=== PATIENT | female | born 1995 | race Caucasian/White ===

== ENCOUNTER → 2024-03-18 | Outpatient (CLI) | payer BC, SELFPAY ==
[2024-03-23 09:55] LABS: HPV Reflexed? NOT INDICATED
== END | disposition home or self-care (01) ==
PROVIDERS: Referring Provider Advanced Practice Midwife; Visit Provider Advanced Practice Midwife
DX: Z12.4 Encounter for screening for malignant neoplasm of cervix (principal)
CPT/HCPCS: 88175; G0145

== ENCOUNTER → 2024-10-07 | Outpatient (CLI) | payer BC, SELFPAY ==
--- OUTSIDE RECORDS SUMMARY | 2024-10-07 08:44 | XMS RPT_ITS | CCD ---
Author Organization [facility] Inform ion Partnership [facility] Care Team Providers Care Fruit Room Hand Name Role Phone AndresRabia orourke Unavailable Unavailable Eufemia Bob Unavailable Unavailable Laurel Tarango MD Unavailable Unavailable Eufemia Bob MD Primary Care Provider [phone] Eufemia Bob MD Primary Care Provider [phone] Unknown, Referring Provider Unavailable Unav ailable Unavailable Unavailable UNKNOWN, PCP Primary Care Unavailable Julian Foote Referring Unavailable Julian Foote Attending Unavailable Torrie Lazo Referring Unavailable Torrie Lazo Attending Unavailable Torrie Lazo Attending Unavailable Allergies Allergy Classification Reported Allergen(s) Allergy Type Date of Onset Reaction(s) Facility (1 source) tobacco; Translations: [tobacco] Propensity to adverse reactions (disorder) 5 [facility] Repository Medications Current Medications Medication Drug Class(es) Dates Sig (Normalized) Sig (Original) Desogestrel / Ethinyl Estradiol (4 sources) Progestin, Estrogen Start: 10-15-2021 take 1 tablet by mouth once daily, then take 0.15 tablet by mouth once Desogestrel-Ethin yl Estradiol (JULEBER) 0.15-0.03 mg per tablet TAKE 1 TABLET BY MOUTH ONCE DAILY until directed to stop 84 tablet 4 10/15/2021 Active Start: 09-10-2021 End: 10-15-2021 take 1 tablet by mouth once daily, then take 0.15 tablet by mouth once Desogestrel-Ethinyl Estradiol (JULEBER) 0.15-0.03 mg per tablet TAKE 1 TABLET BY MOUTH ONCE DAILY until directed to stop 84 tablet 0 09/10/2021 10/15/2021 Discontinued Start: 09-10-2021 take 1 tablet by edmund th once daily, then take 0.15 tablet by mouth once Desogestrel-Ethinyl Estradiol (JULEBER) 0.15-0.03 mg per tablet TAKE 1 TABLET BY MOUTH ONCE DAILY until directed to stop 84 tablet 0 09/10/2021 Active Start: 10-09-2020 End: 09-10-2021 take 1 tablet by mouth once daily, then take 0.15 tablet by mouth once Desogestrel-Ethinyl Estradiol (JULEBER) 0.15-0.03 mg per tablet TAKE 1 TABLET BY MOUTH ONCE DAILY until directed to stop 3 Package 4 10/09/2020 09/10/2021 Discontinued Comment on above: TAKE 1 TABLET BY EDMUND TH ONCE DAILY until directed to stop Completed/Discontinued Medications Medication Drug Class(es) Dates Sig (Normalized) Sig (Original) amitriptyline hydrochloride 25 mg oral tablet (2 sources) Tricyclic Antidepressant Start: 6 amitriptyline (ELAVIL) 25 mg tablet Take by mouth once daily. 0 08/03/2015 Active Comment on above: Take by mouth once d aily. atenolol 25 mg oral tablet (2 sources) beta-Adrenergic Paul Start: 6 atenolol (TENORMIN) 25 mg tablet Take by mouth once daily. 0 08/19/2015 Active Comment on above: Take by mouth once d aily. benzonatate 200 mg oral capsule (1 source) Non-narcotic Antitussive Start: 2 take 1 capsule by mouth three times daily as needed Benzonatate 200 MG Oral Capsule TAKE 1 CAPSULE 3 TIMES DAILY NEEDED. Quantity: 30 Refills: 0 Ordered: 08-Jan-2022 Julian Foote MD Start : 08-Jan-2022 Active 24 hr diclofenac sodium 100 mg extended release oral tablet (2 sources) Nonsteroidal Anti-inflammatory Drug Start: 6 diclofenac XR (VOLTAREN-XR) 100 mg Tb24 Take by mouth once daily. 0 09/01/2015 Active Comment on above: Take by mouth once d aily. fludrocortisone acetate 0.1 mg oral tablet (2 sources) Start: 6 take 1 tablet by mouth twice daily fludrocortisone (FLORINEF) 0.1 mg tablet Take by mouth twice daily. 0 09/01/2015 Active Comment on above: Take by mouth twice daily. hydroxychloroquine sulfate 200 mg oral tablet (2 sources) Antimalarial, Antirheumatic Agent hydroxychloroquine (PLAQUENIL) 200 mg tablet Take by mouth once daily. 0 Active Comment on above: Take by mouth once d aily. lidocaine 0.05 mg/mg medicated patch (2 sources) Antiarrhythmic, Amide Local Anesthetic Start: 6 apply 1 dose transdermal route every twelve hours lidocaine (LIDODERM) 5 % Apply 1 Patch as directed every 12 hours. 0 09/01/2015 Active Comment on above: Apply 1 Patch as dir ected every 12 hours. magnesium oxide 400 mg oral tablet (2 sources) Start: 6 magnesium oxide (MAG-OX) 400 mg tablet Take by mouth once daily. 0 09/01/2015 Active Comment on above: Take by mouth once d aily. raNITIdine (2 sources) Histamine-2 Receptor Antagonist RANITIDINE HCL (ZANTAC ORAL) Take by mouth once daily. 0 Active Comment on above: Take by mouth once d aily. Problems Active Problems Problem Classification Problem Date Documented Date Episodic/Chronic Cardiac dysrhythmias (2 sources) Postural orthostatic tachycardia syndrome ; Translations: [Other specified cardiac dysrhythmias] Chronic Headache; including migraine (2 sources) Migraine; Translations: [Migraine, unspecified, without mention of intractable migraine without mention of status migrainosus] Chronic Other non-traumatic joint disorders (4 sources) Hypermobility of joint; Translations: [Other joint derangement, not elsewhere classified, site unspecified] Episodic Other screening for suspected conditions (not mental disorders or infectious disease) (1 source) Encounter for screening for malignant neoplasm of cervix; Translations: [Encounter for screening for malignant neoplasm of cervix] Onset: 04-14-2024 Episodic Other upper respiratory infections (2 sources) Sore throat symptom; Translations: [Acute pharyngitis] Episodic Residual codes; unclassified (2 sources) Flushing; Translations: [Flushing] Episodic Past or Other Problems Problem Classification Problem Date Documented Da te Episodic/Chronic Abdominal pain (2 sources) Abdominal discomfort; Translations: [Unspecified abdominal pain] Onset: 11-30-2015 11-30-2015 Episodic Blindness and vision defects (2 sources) Diplopia; Translations: [Diplopia] Onset: 05-02-2011 05-02-2011 Episodic Headache; including migraine (2 sources) Headache; Translations: [Headache] Onset: 05-02-2011 05-02-2011 Episodic Other lower respiratory disease (1 source) History of clinical finding in subject; Translations: [Personal history of other diseases of respiratory system] Resolved: 01-08-2022 Episodic Residual codes; unclassified (2 sources) Family history of malignant neoplasm of breast in first degree relative; Translations: [Family history of malignant neoplasm of breast] Onset: 12-28-2019 12-28-2019 Episodic NEGATED: Highlighted row has not occurred!Residual codes; unclassified (1 source) Disease Episodic Results Test Name Value Interpretation Reference Range Facility PAP I-G w/rfx hrHPV-Aptimaon 03-22-2024 ADEQ Comment Normal . [facility] Comment on above: Order Comment: Specimen Comment: PABLO [id number] Specimen Comment: Source.............Cervix;Endocervix Specimen Comment: No. of containers..01 ThinPrep Vial Result Comment: Sati sfactory for evaluation. Endocervical and/or squamous metaplastic cells (endocervical component) are present. Performed By: #### L 7400.0353 #### [facility] [address] [place], [address] COMM . Normal . [facility] Comment on above: Order Comment: Specimen Comment: CYNTHIACharlene [id number] Specimen Comment: Source.............Cervix;Endocervix Specimen Comment: No. of containers..01 ThinPrep Vial Performed By: #### L 7400.0353 #### [facility] [address] [place], [place], [id number] COMMENT Comment Normal . [facility] Comment on above: Order Comment: Specimen Comment: PABLO [id number] Specimen Comment: Source.............Cervix;Endocervix Specimen Comment: No. of containers..01 ThinPrep Vial Result Comment: This liquid based ThinPrep(R) pap test was screened with the use of an image guided system. Performed By: #### L 7400.0353 #### [facility] [address] [place], [place], [id number] DIAG Comment Normal . [facility] Comment on above: Order Comment: Specimen Comment: CO-OLGA LIDIA [id number] Specimen Comment: Source.............Cervix;Endocervix Specimen Comment: No. of containers..01 ThinPrep Vial Result Comment: NEGA TIVE FOR INTRAEPITHELIAL LESION OR MALIGNANCY. Performed By: #### L 7400.0353 #### [facility] [address] [place], [address] HPV RFLX Comment Normal . [facility] Comment on above: Order Comment: Specimen Comment: CO-Charlene [id number] Specimen Comment: Source.............Cervix;Endocervix Specimen Comment: No. of containers..01 ThinPrep Vial Result Comment: The HPV DNA reflex criteria were not met with this specimen result therefore, no HPV testing was performed. Performed at: [address] [id number] [employer] Order Clerk: Christie Frias MD, Phone: [phone] Performed By: #### L 7400.0353 #### [facility] [address] [place], [address] PAPSMR Comment Normal . [facility] Comment on above: Order Comment: Specimen Comment: CO-Charlene [id number] Specimen Comment: Source.............Cervix;Endocervix Specimen Comment: No. of containers..01 ThinPrep Vial Result Comment: The Pap smear is a screening test designed to aid in the detection of premalignant and malignant conditions of the uterine cervix. It is not a diagnostic procedure and should not be used as the sole means of detecting cervical cancer. Both false-positive and false-negative reports do occur. Performed By: #### L 7400.0353 #### [facility] [address] [place], [address] PERFORM Comment Normal . [facility] Comment on above: Order Comment: Specimen Comment: CO-CWB2 [id number] Specimen Comment: Source.............Cervix;Endocervix Specimen Comment: No. of containers..01 ThinPrep Vial Result Comment: Vadim Le, Business Intelligence Manager (ASCP) Performed By: #### L 7400.0353 #### [facility] [address] [place], [address] Instructional Technology Coach Office Visit Reporton 03-18-2024 Instructional Technology Coach Office Visit Report [facility] [address], [address] [place] [address] OFFICE VISIT Date of Service: 03/18/24 MR#: [id number] Acct: [id number] Name: MIS SANDOVAL [place] Rep #: [id number] : 1995 Provider: BRYNN Powell ams Age/Sex: 28/F [place] [facility] [place] Status: Signed Intake Vital Signs 12/26/22 10:07 03/18/24 15:58 Height 5 ft 5 in 5 ft 5 in Weight: 225 lb BMI 37.4 BP 140/88 H Intake Visit 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: No Is patient in pain?: No Allergies tobacco Allergy (Severe, Uncoded 03/18/24 15:59) Anaphylaxis Medications ???Medication ???Instructions ???Recorded ???Confirmed ???Type desogestrel 0.15 mg-ethinyl 1 tab PO DAILY #84 tabs 03/18/24 03/18/24 Rx estradiol 0.03 mg tablet Is last menstrual period known: Yes Last Menstrual Period: 03/04/24 Post menopausal: No Patient : No Control Method: ocp [facility] Medical History Nutcracker phenomenon of renal vein Hypoglycemia without diagnosis of diabetes mellitus Vasovagal syncopes POTS (postural orthostatic tachycardia syndrome) Migraine Matt-Danlos syndrome Surgical History S/P wisdom tooth extraction Family History Brother Asthma Mother Bleeding disorder Thyroid disorder Breast cancer, Onset Age: 40 Grandmother Breast cancer Diabetes Myocardial infarction Father CVA (cerebral vascular accident) Grandmother Cancer Diabetes Aunt Cancer Social History adopted: No household members: spouse current occupational status: employed 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 current occupational exposures/hazards: No pets and animals: Yes history of recent travel: No sexually active: Yes Smoking Status: Never smoker alcohol intake: current details: socially substance use type: does not use caffeine: Yes seatbelt use: always do you feel safe at home: Yes additional social history: [employer] - [employer] History 1 Elective abortions Hx Para 0 Spontaneous abortions 1 Hx # Term Pregnancies Ectopic pregnancies Hx # Pregnancies Multiple births # of living children 0 HPI Encounter for routine gynecological examination Details: MIS SANDOVAL is a 28 year old who presents for annual exam. Last PAP: 2021; normal per pt History of abnormal PAP: no Last mammogram: age 42 History of abnormal mammogram: n/a Colon cancer screening: age 47 Other preventative health care screenings: no pcp Female Reproductive History Last Menstrual Period: 03/04/24 Cycle Length: 21-35 Bleeding Duration: 4 Questions: metorrhagia: No, sexually active: Yes, dyspareunia: No and PCB: No ROS Const Constitutional: Reports system reviewed and no additional complaints, except as documented Cardio Card: Reports system reviewed and no additional complaints, except as documented Resp Resp: Reports system reviewed and no additional complaints, except as documented GI GI: Reports system reviewed and no additional complaints, except as documented : Reports system reviewed and no additional complaints, except as documented; Denies difficulty voiding, dysuria or urinary frequency Skin Skin/Breast: Reports system reviewed and no additional complaints, except as documented Neuro Neuro: Reports system reviewed and no additional complaints, except as documented Psych Psych: Reports system reviewed and no additional complaints, except as documented; Denies anhedonia, anxiety or depression Exam Const General: cooperative, healthy appearing, comfortable and no acute distress Orientation: alert, awake and oriented x3 Neck Neck: normal visual inspection and full ROM Thyroid: thyroid normal Chest Breast inspection: normal inspection of the breasts and normal inspection of the axillae Breast palpation: normal palpation of the breasts and normal palpation of the axillae Resp Effort Inspection: normal respiratory effort, able to speak in complete sentences and symmetric chest movement GI Inspection: normal to inspection Palpation: soft Rectal Exam: visual inspection normal External Female Exam: normal external appearance and normal appearance of the urethra Urethra: normal appearance of the urethra Speculum Exam - Vagina: normal appearance of the vagina and normal vaginal discharge Speculum Exam - Cervix: normal appearance of the cervix and nontender Bimanual Exam- Vagina Uterus: normal bimanual exam, normal palpation, uterine size normal, No tender and non-tender Bimanual Exam- Adnexa, other: normal Pelvic Support: normal Skin General: (more content not included)... Normal [facility] Covid 19 Resultson 2 SARS-CoV-2 (COVID-19) RNA ANTONIO+probe Ql (Unsp spec) NEGATIVE COVID-19 Test Coronaviruses are common world-wide and are the cause of many common colds. SARS-COV2 is a new coronavirus that began circulating worldwide in 2019 so we are calling it COVID-19. It has been estimated that four out of five patients with COVID-19 will recover at home without the need for medical attention. Symptoms of COVID-19 may include cough, fever, shortness of breath, loss of taste or smell and other flu-like symptoms including chills, sore muscles, sore throat, and headache. Severe illness is more common in older people and people with other health problems such as high blood pressure, obesity, and immune system problems. If the test is positive, you have COVID-19. You will be contacted by the ordering physicians office and instructed to remain on home isolation, in accordance with CDC guidelines. You may also be contacted by the [facility] to see if any of your close contacts may have been exposed to the virus and need to quarantine. If the test is negative, you likely do not have COVID-19 at this time, but you still may have a different illness that can spread to other people (like Influenza, or the Flu) and could still be at risk for getting COVID-19. We recommend that you stay away from other people to limit the spread of illness until your symptoms are improving and you are fever-free for 24 hours without the use of fever lowering medications such as acetaminophen or ibuprofen. No test is 100% accurate so if you are still concerned you may have COVID-19, talk to your doctor about the need to continue to stay away from others. Medicines Unless your provider told you not to use the following: Acetaminophen (Tylenol and others) is generally safe. Anti-inflammatory medications, such as Ibuprofen (Advil or Motrin) or Naproxen (Aleve) can also be used. Yugj-ons-eoyhfer cough and cold medicines can be used according to the instructions on the package. Some fmza-fsp-fzbkupt medicines also contain acetaminophen. Make sure you are not taking more than your recommended dose. For those not hospitalized, there is no specific treatment available for this illness. Antibiotics do not treat Coronaviruses. Follow-Up Follow up with your doctor by scheduling a virtual visit or consider follow-up at one of our urgent care fever clinics. If you are having difficulty breathing, or are very weak and having difficulty standing, this is a medical emergency. Call 911 or have someone take you to the nearest emergency room immediately. If possible, wear a facemask. Additional guidance from the CDC for patients who tested POSITIVE for COVID-19 How to isolate: Isolate yourself in a specific room at home and limit your contact with others. Use a separate bathroom from other members of the household, when possible. Leave home only to get essential medical care. Do not go to work, school or public areas. Avoid using public transportation, ride-sharing, or taxis. Restrict contact with pets and other animals. If you must care for your pet or be around animals while you are sick, wash your hands before and after your interaction and wear a facemask. Make sure that shared spaces in the home have good airflow, such as by an air conditioner or an opened window, weather permitting. Personal Hygiene Procedures: Wear a face mask when in the same room as other people or pets. If a face mask interferes with your breathing, others should wear a mask when sharing space with you. Frequent hand-washing: wash your hands with soap and water for at least 20 seconds. If soap and water are not available, use alcohol-based hand clinical nurse occupational medicine. Avoid touching your eyes, nose, and mouth with unwashed hands. Household Hygiene Procedures: Avoid sharing personal household items such as dishes, glassware, cups, eating utensils, towels or bedding with other people or pets in your home. After use, these items should be washed with soap and hot water. Disinfect all high-touch surfaces every day with antibacterial cleaning solutions such as Lysol wipes, bleach, cleansers, etc. High-touch surfaces include tabletops, doorknobs, bathroom fixtures, toilets, phones, keyboards, tablets and bedside tables. Immediately clean any surfaces that may have blood, poop or body fluids on them, using antibacterial cleaning solutions such as Lysol wipes, bleach, cleansers, etc. If clothing or bedding come into contact with blood, poop or body fluids, they should be washed immediately. Follow the directions on the laundry detergent and clothing labels but hot water is recommended when possible. Stopping home isolation precautions: If possible, consult your doctor before stopping home isolation precautions. According to the CDC, you can discontinue home isolation precautions when you have met both of these criteria: Your fever and respiratory symptoms have been gone for 24 anthony (more content not included)... Normal [facility] INFLUENZA A/B, COVID 2019 PC R,SYMPTOMATICon 01-09-2022 INFLUENZA A, PCR Not detected Normal Not Detected [facility] Comment on above: Result Comment: Respiratory virus testin g is performed routinely by PCR for Influenza A/B and RSV. If Influenza and RSV PCR are negative, testing for parainfluenza 1,2,3 viruses and adenovirus is routinely performed for oncology inpatients and intensive care unit patients at [facility] and is available on request on other patients by calling Laboratory Client Services at [phone]. Not Detected results do not preclude Influenza A/B or RSV infections since the adequacy of sample collection or low viral burden may impact the clinical sensitivity of this test method. Performed By: #### C ALESSANDRA #### [facility] [address] [place] [address] INFLUENZA B, PCR Not detected Normal Not Detected [facility] Comment on above: Result Comment: Respiratory virus testin g is performed routinely by PCR for Influenza A/B and RSV. If Influenza and RSV PCR are negative, testing for parainfluenza 1,2,3 viruses and adenovirus is routinely performed for oncology inpatients and intensive care unit patients at [facility] and is available on request on other patients by calling Laboratory Client Services at [phone] Not Detected results do not preclude Influenza A/B or RSV infections since the adequacy of sample collection or low viral burden may impact the clinical sensitivity of this test method. . The TaqManTM SARS-CoV-2, Flu A, Flu B Multiplex Assay is a multiplex, real-time RT-PCR assay for the detection of RNA from the SARS-CoV-2, Influenza A, and Influenza B viruses. A negative result does not preclude the possibility of SARS-CoV-2, Influenza A, or Influenza B infections, and should not be used as the sole basis for patient management decision as a negative result may be caused by very low levels of infection, collection errors, or testing errors. . This test was developed and its performance characteristics were determined by the Microbiology Laboratory, Department of Pathology, [facility], [place], [place]. It has not been cleared or approved by the US Food and Drug Administration; however, FDA clearance or approval is not currently required for clinical use. This test should not be regarded as investigational or for research purposes. Performed By: #### C OINP #### [facility] [address] [place] [address] SARS-CoV-2 (COVID-19) RNA ANTONIO+probe Ql (Unsp spec) Not detected Normal Not Detected [facility] Comment on above: Result Comment: . This assay is designed to detect the N, ORF1ab and/or S genes of SARS-CoV-2 via nucleic acid amplification. A Negative (NOT DETECTED) result does not preclude 2019-nCoV infection since the adequacy of sample collection and/or low viral burden may result in presence of viral nucleic acids below the clinical sensitivity of this test method. Negative (NOT DETECTED) result should not be used as the sole basis for treatment or other patient management decisions. Rather negative results should be combined with clinical observations, patient history, and epidemiological information to make patient management decisions. Fact sheet for providers: https://www.fda.gov/media/106922/download Fact sheet for patients: https://www.fda.gov/media/405297/download This test has received FDA Emergency Use Authorization (EUA) and has been verified by [facility] ([facility]). This test is only authorized for the duration of time that circumstances exist to justify the authorization of the emergency use of in vitro diagnostic tests for the detection of SARS-CoV-2 virus and/or diagnosis of COVID-19 infection under section 564(b)(1) of the Act, 21 U.S.C. 360bbb-3(b)(1), unless the authorization is terminated or revoked sooner. [facility] is certified under CLIA-88 as qualified to perform high complexity testing. Testing is performed in the [facility] laboratories located at [address] [place] [address]. Performed By: #### C OINP #### [place] [address] INFLUENZA A/B, COVID 2019 PC R,SYMPTOMATICon 01-08-2022 Lab Specimen Source Nasal, Nasopharyngeal Normal [facility] Comment on above: Performed By: #### COINP #### [place] [address] INFLUENZA A/B, COVID 2019 PCR,SYMPTOMATIC Not detected See [facility] Work Phone: Comment on above: Reference Range: Not Detected.This assay is designed to detect the N, ORF1ab and/or S genes of SARS-CoV-2 via nucleic acid amplification. A Negative (NOT DETECTED) result does not preclude 2019-nCoV infection since the adequacy of sample collection and/or low viral burden may result in presence of viral nucleic acids below the clinical sensitivity of this test method. Negative (NOT DETECTED) result should not be used as the sole basis for treatment or other patient management decisions. Rather negative results should be combined with clinical observations, patient history, and epidemiological information to make patient management decisions.Fact sheet for providers: https://www.fda.gov/media/477216/downloadFact sheet for patients: https://www.fda.gov/media/672579/downloadThis test has received FDA Emergency Use Authorization (EUA) and has been verified by [facility] ([facility]). This test is only authorized for the duration of time that circumstances exist to justify the authorization of the emergency use of in vitro diagnostic tests for the detection of SARS-CoV-2 virus and/or diagnosis of COVID-19 infection under section 564(b)(1) of the Act, 21 U.S.C. 360bbb-3(b)(1), unless the authorization is terminated or revoked sooner. [facility] is certified under CLIA-88 as qualified to perform high complexity testing. Testing is performed in the [facility] laboratories located at [address] [place] [address]. Reference Range: Not Detected Respiratory virus testing is performed routinely by PCR for Influenza A/B and RSV. If Influenza and RSV PCR are negative, testing for parainfluenza 1,2,3 viruses and adenovirus is routinely performed for oncology inpatients and intensive care unit patients at [facility] and is available on request on other patients by calling Laboratory Client Services at [phone] Not Detected results do not preclude Influenza A/B or RSV infections since the adequacy of sample collection or low viral burden may impact the clinical sensitivity of this test method..The TaqManTM SARS-CoV-2, Flu A, Flu B Multiplex Assay is a multiplex, real-time RT-PCR assay for the detection of RNA from the SARS-CoV-2, Influenza A, and Influenza B viruses. A negative result does not preclude the possibility of SARS-CoV-2, Influenza A, or Influenza B infections, and should not be used as the sole basis for patient management decision as a negative result may be caused by very low levels of infection, collection errors, or testing errors. .This test was developed and its performance characteristics were determined by the Microbiology Laboratory, Department of Pathology, [facility], [place], [place]. It has not been cleared or approved by the US Food and Drug Administration; however, FDA clearance or approval is not currently required for clinical use. This test should not be regarded as investigational or for research purposes. SOURCE: Nasal, Nasop haryngealReference Range: Not Detected Respiratory virus testing is performed routinely by PCR for Influenza A/B and RSV. If Influenza and RSV PCR are negative, testing for parainfluenza 1,2,3 viruses and adenovirus is routinely performed for oncology inpatients and intensive care unit patients at [facility] and is available on request on other patients by calling Laboratory Client Services at [phone]. Not Detected results do not preclude Influenza A/B or RSV infections since the adequacy of sample collection or low viral burden may impact the clinical sensitivity of this test method. IO Rapid Strepon 01-08-2022 S. pyogenes Ag Ql (Throat) Negative [facility] Phone: Office Visit (Urgent Care)on 01-08-2022 Follow-up visit Diagnoses/Problems Assessed Viral URI with cough (465.9) (J06.9) History of sore throat (V12.69) (Z87.09) Sore throat (462) (J02.9) Orders PMH: History of sore throat IO Rapid Strep; Status:Resulted - Requires Verification,Retrospective Authorization; Done: 08Jan2022 11:07AM Performed:In Office; Due:08Apr2022; Last Updated By:Kendall Paiz; 01/08/2022 11:07:48 AM;Ordered; For:PMH: History of sore throat; Ordered By:Julian Foote; Sore throat INFLUENZA A/B, COVID 2019 PCR,SYMPTOMATIC; Status:In Progress - Specimen/Data Collected; Done: 08Jan2022 Perform:Lab Services - Lab To Draw (Non-Blood Test); Due:08Apr2022;Ordered; For:Sore throat; Ordered By:Julian Foote; Patient Discussion/Summary Please see your primary care physician in 5-7 days. as needed You have been identified as a patient under investigation (PUI) Tylenol or Motrin as needed for discomfort Increase fluids and rest Call for your test results in 24-48 hours Practice self quarantining, social distancing, masking and cleaning surfaces An information packet has been provided Seek medical care for increasing shortness of breath, chest pains or high fevers Chief Complaint Chief Complaints Nasal Symptoms History of Present Illness 26 year old female presents with 2 days of cough, congestion, postnasal drip runny nose and sore throat. No fevers have been noted. Patient denies shortness of breath, chest pain, or wheezing. No red eyes, eye pain, or discharge. They deny nausea vomiting or diarrhea. No known exposures to strep mono influenza, COVID-19 or pneumonia. No skin rashes are noted. Sazu-cke-tnrvgfg medications are offering minimal relief from symptoms. 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 Over the last 2 weeks have you felt down, depressed or hopeless? (If yes, answer PHQ-9 below)No PHQ-2 #2. Over the last 2 weeks have you felt little interest or pleasure in doing things? (If yes, answer PHQ-9 below)No Falls Screening (Age 18+)a) No falls within the last year O2 Bqrkslkvlh79 Pain Scale6 Physical Exam Gen.-alert cooperative and in no apparent distress Head and face- no swelling redness, tenderness or rash Eyes-EOMI, no redness or discharge is noted ENT- bilateral nasal congestion with clear rhinorrhea and postnasal drip in oral pharynx Neck- normal range of motion with no lymphadenopathy or mass. Thyroid normal size without tenderness or mass Pulmonary- no respiratory distress noted. Lungs clear to auscultation without wheezes rhonchi or rales Skin- no rashes discoloration or skin lesions noted Lymphatic-- no lymph node swelling or tenderness appreciated Results/Data IO Rapid [id number] 11:07AMJulian Foote Test NameResultFlagReference IO Rapid StrepNegative Rapid strep test negative Signatures Electronically signed by : Julian Foote MD; Jan 08 2022 11:35AM EST (Author) Normal [employer] Tobacco Screening.on 022 Adult depression screening assessment No [facility] Phone: Fall risk assessment a) No falls within the last year [facility] Work Phone: Tobacco use status [facility] b) No [facility] Work Phone: CNOVon 10-15-2021 CNOV Office Visit (OBGMEM ) MIS SANDOVAL ([id number]) 1995 F Date Time Provider Department 10/15/21 7:00 AM CAROLYN PINEDA During your visit today, we recorded the following information about you: Blood pressure Weight Last Period 106/80 93.9 kg 10/01/21 Carolyn Pineda MD 10/15/2021 7:24 AM Signed Mis is a 26 year old who presents for an annual gynecologic exam without complaints. Menses: cycles every 28 days and 5-6 days of flow. Contraception: combined hormonal contraceptives HPV vaccine: Yes Last Pap: 08/24/2019 ASCUS HPV: 08/28/2019 negative History of abnormal pap: No Last mammogram: never OB History T0 L0 SAB1 IAB0 Ectopic0 Multiple0 Live Births0 [employer] Super[employer] History LMP: 10/01/2021 (Approximate), Having periods Age at Menarche: Age at First : Age at Menopause: [employer] Supervisor History Comments: Sexual Activity: Yes; No partner data on record Contraception: Pill PAST MEDICAL HISTORY Diagnosis Date Arthropathy Enthesitis arthritis Ehler's-Danlos syndrome Dx at Family history of breast cancer in first degree relative Mother age 40 Hypoglycemia Mast cell activation syndrome (HCC) 2018 Dx at POTS (postural orthostatic tachycardia syndrome) Syncope vasovagel syncope PAST SURGICAL HISTORY Procedure Laterality Date PAST SURGICAL HISTORY OF wisdom teeth extraction FAMILY HISTORY Problem Relation Age of Onset Stroke Father x 2 Heart Brother congenital Breast Cancer Mother 40 Breast Cancer Maternal Aunt Breast Cancer Maternal Aunt SOCIAL HISTORY Social History Tobacco Use Smoking status: Never Smokeless tobacco: Never Tobacco comments: denies use of tobacco Vaping Use Vaping Use: Never used Substance Use Topics Alcohol use: No Comment: no history reported Drug use: No Comment: no history reported REVIEW OF SYSTEMS Abdomen: No abdominal pain, nausea, vomiting, diarrhea, or constipation. No bloating, early satiety, indigestion, or increased flatulence. Bladder: No dysuria, gross hematuria, urinary frequency, urinary urgency, or incontinence. Breast: No breast lumps, nipple d/c, overlying skin changes, redness or skin retraction. Allergies and current medication updated:Yes EXAM: BP 106/80 Wt 207 lb (93.9kg) LMP 10/01/2021 GENERAL: pleasant, female in no apparent distress HEENT: Normocephalic, atraumatic, mucus membranes moist, and no lesions NECK: Supple, full range of motion, no adenopathy, and thyroid normal DERMATOLOGY: Normal, without lesions, non-icteric, and non-hirsute BREAST: soft, non-tender, symmetric, no dominant mass, normal nipple-areolar complex, no lymphadenopathy, and no nipple discharge CHEST: Clear to auscultation, Normal inspiratory effort, Regular rate and rhythm, and No murmurs, clicks, rubs or gallops ABDOMEN: soft, non-tender, no masses, and no hepatosplenomegaly PELVIC: external genitalia normal, normal Bartholin's glands, urethra, Ko Vaya's glands, no vulvar lesions, no cervical lesions, good vaginal support, physiologic discharge present, normal appearing perineal body and perianal region BIMANUAL: uterus normal size, shape and consistency, midposition, no adnexal masses, and non-tender RECTOVAGINAL: deferred NEURO: alert and oriented x3,exam grossly non-focal EXTREMITIES: normal ASSESSMENT/PLAN: 1) Health maintenance: Pap/HPV up to date. 2) Contraception: combined hormonal contraceptives. Contraceptive options reviewed and information provided. 3) STD screening: Declined STD check. 4) Follow up one year or sooner as needed Carolyn Pineda MD Referring Provider: SELF [[id number]] Allergies As of Date: 10/15/2021 (No Known Allergies) Date Reviewed: 10/15/2021 Reviewed by: Jeannine Madrid Ma - Fully Assessed Reason for Visit: Well Woman [[id number]] Primary Visit Diagnosis:Encounter for gynecological examination (general) (routine) without abnormal findings [Z01.419] Order(s):Desogestrel-Ethiny l Estradiol (JULEBER) 0.15-0.03 mg per tabletTAKE 1 TABLET BY MOUTH ONCE DAILY until directed to stopDisp: 84 tabletRfl: 4 Prescriptions as of 10/15/2021 - Desogestrel-Ethinyl Estradiol (JULEBER) 0.15-0.03 mg per tablet TAKE 1 TABLET BY MOUTH ONCE DAILY until directed to stop - RANITIDINE HCL (ZANTAC ORAL) Take by mouth once daily. - hydroxychloroquine (PLAQUENIL) 200 mg tablet Take by mouth once daily. - amitriptyline (ELAVIL) 25 mg tablet Take by mouth once daily. - atenolol (TENORMIN) 25 mg tablet Take by mouth once daily. - diclofenac XR (VOLTAREN-XR) 100 mg Tb24 Take by mouth once daily. - fludrocortisone (FLORINEF) 0.1 mg tablet Take by mouth twice daily. - lidocaine (LIDODERM) 5 % Apply 1 Patch as directed every 12 hours. - magnesium oxide (MAG-OX) 400 mg tablet Take by mouth once daily. Problem List As Of Date 10/15/2021 No (more content not included)... Normal [facility] [employer] LTon 01-15 [facility] H?REL * * *Final Report* * * DATE OF EXAM: Jan 16 2020 2:05PM WILLI 0593 - [facility] H?REL LT / PROCEDURE REASON: N63.0-Lump or mass in breast * * * * Physician Interpretation * * * * #[id number] - [facility] H?REL LIMITED ULTRASOUND OF LEFT BREAST AND AXILLA: 01/16/2020 HISTORY: N63.0-Lump Or Mass In Breast. RESULT: No prior exams were available for comparison. Color flow and Doppler ultrasound of the left breast axilla were performed on the areas of interest. Haynes scale images of the real-time examination were reviewed. Normal axillary lymph nodes are noted. No abnormalities were seen sonographically in the left axilla. IMPRESSION: NEGATIVE There is no sonographic evidence of malignancy. There is no abnormality seen in the left breast to correspond with the area of clinical concern in the axilla. Follow-up with ACR/NCCN guidelines. Jama Rim M.D. ar/luiz:01/16/2020 14:07:41 English Division Chair(s): Ashlyn Carmona, [facility] Ultrasound BI-RADS: 1 Negative Multiple national specialty organizations have released breast cancer screening guidelines for women at average risk for developing breast cancer - guidelines that are based on both evidence and opinion, yet differ on when to start and how often to screen for breast cancer. With representation from Breast Imaging, Internal Medicine, Women's Health, Family Medicine, and Medical/Surgical Oncology, the [facility] has carefully reviewed the data and reached the following consensus: 1) All women should engage in shared decision-making with their providers to decide when to start and how often to screen; 2) All women should have the opportunity to start screening mammography at age 40; 3) For women ages 45-55, we recommend annual screening mammograms; 4) For women ages 55 and over, we support both the transition from an annual to a biennial interval if this aligns more with patient's values and preferences, or continuation with annual screening; 5) All women should discuss with their providers when to stop screening mammograms. Comparator Operator: Luiz Transcribe Date/Time: Jan 16 2020 1:52P Dictated by : JAMA MANDUJANO MD This examination was interpreted and the report reviewed and electronically signed by: JAMA MANDUJANO MD on Jan 16 2020 2:07PM EST [id number] Normal [facility] Basic Panelon 12-16-2016 Anion gap 6 mmol/L Low 8-20 [facility] Comment on above: Performed By: #### LP8 ####[address] [address] BUN (urea nitrogen) 16 mg/dL Normal 7-25 [facility] Comment on above: Performed By: #### LP8 ####[address] [address] BUN/Creatinine Ratio 21 mg/mg High 10-20 [facility] Comment on above: Performed By: #### LP8 ####[address] [address] Calcium 9.0 mg/dL Normal 8.5-10.1 [facility] Comment on above: Performed By: #### LP8 ####[facility] [place], [place] [address] Chloride 104 mmol/L Normal 98-107 [facility] Comment on above: Performed By: #### LP8 ####[address] [address] CO2 27 mmol/L Normal 21-32 [facility] Comment on above: Performed By: #### LP8 ####[address] [address] Creatinine 0.76 mg/dL Normal 0.51-0.95 [facility] Comment on above: Performed By: #### LP8 ####[address] [address] Glucose mass conc 76 mg/dL Normal 70-99 [facility] Comment on above: Performed By: #### LP8 ####[address] [address] Potassium molar conc 3.6 mmol/L Normal 3.5-5.1 [facility] Comment on above: Performed By: #### LP8 ####[address] [address] Sodium 133 mmol/L Low 136-145 [facility] Comment on above: Performed By: #### LP8 ####[address] [address] HCG, Qual. Serumon 7 HCG, Qual. Serum Negative Normal Negative [facility] Comment on above: Performed By: #### LSHCG ####[address] [address] Hemogram/Diffon 12-16-2016 Basophils Auto #/vol (Bld) 0.03 thou/cmm Normal 0.00-0.08 [facility] Comment on above: Performed By: #### LCBCD ####[address] [address] Basophils/100 WBC Auto (Bld) 0.3 % Normal [facility] Comment on above: Performed By: #### LCBCD ####[facility] [place], [place] [address] Eosinophils 0.21 thou/cmm Normal 0.00-0.41 [facility] Comment on above: Performed By: #### LCBCD ####[facility] [place], [place] [address] Eosinophils/100 leukocytes 2.4 % Normal [facility] Comment on above: Performed By: #### LCBCD ####[facility] [place] [address] Erythrocyte distribution width Auto Ratio (RBC) 11.7 % Normal 11.5-15.9 [facility] Comment on above: Performed By: #### LCBCD ####[facility] [place] [address] Erythrocytes (RBC) 4.30 mil/cmm Normal 4.20-5.40 [facility] Comment on above: Performed By: #### LCBCD ####[facility] [place] [address] Hematocrit (HCT) 37.6 % Normal 37.0-47.0 [facility] Comment on above: Performed By: #### LCBCD ####[facility] [place] [address] Hemoglobin mass conc (Bld) 13.1 g/dL Normal 12.0-16.0 [facility] Comment on above: Performed By: #### LCBCD ####[facility] [place] [address] Lymphocytes 2.66 thou/cmm Normal 1.50-3.65 [facility] Comment on above: Performed By: #### LCBCD ####[facility] [address] [address] Lymphocytes/100 leukocytes 29.9 % Normal [facility] Comment on above: Performed By: #### LCBCD ####[facility] [place] [address] MCH 30.5 pg Normal 27.0-31.0 [facility] Comment on above: Performed By: #### LCBCD ####[facility] [place], [place] [address] MCHC mass conc (RBC) 34.8 % Normal 32.0-36.0 [facility] Comment on above: Performed By: #### LCBCD ####[facility] [place], [place] [address] MCV 87.4 fL Normal 81.0-99.0 [facility] Comment on above: Performed By: #### LCBCD ####[facility] [place] [address] Monocytes 0.86 thou/cmm Normal 0.20-1.00 [facility] Comment on above: Performed By: #### LCBCD ####[facility] [place] [address] Monocytes/100 leukocytes 9.7 % Normal [facility] Comment on above: Performed By: #### LCBCD ####[facility] [place] [address] Platelet mean volume (PMV) 11.5 fL High 7.1-10.5 [facility] Comment on above: Performed By: #### LCBCD ####[facility] [place] [address] Platelets 245 thou/cmm Normal 150-[address] [facility] Comment on above: Performed By: #### LCBCD ####[place] [address] Seg Neutrophil 57.7 % Normal [facility] Comment on above: Performed By: #### LCBCD ####[facility] [address] [address] Seg. Neut.# 5.14 thou/cmm Normal 3.00-5.67 [facility] Comment on above: Performed By: #### LCBCD ####[place] [address] WBC (Leukocytes) 8.9 thou/cmm Normal 4.8-10.8 [facility] Comment on above: Performed By: #### LCBCD ####[facility] [place], [place] [address] MDRD eGFRon 12-16-2016 eGFR (non-black) mL/min/{1.73_m2} Normal >60mL/m in/1.7 3m2 [facility] Comment on above: Result Comment: If the patient is Pamela n Mongolian, multiply the result by 1.210. Performed By: #### L GFR ####[address] [address] Vital Signs Date Time Vital Sign Value Performing Clinician Facility 01-08-2022 10:54-0400 Body temperature 97.2 [degF] Referring Provider Unknown [facility] Work Phone: 01-08-2022 10:54-0400 Body weight 81.65 kg Referring Provider Unknown [facility] Work Phone: 01-08-2022 10:54-0400 Diastolic blood pressure 90 mm[Hg] Referring Provider Unknown [facility] Work Phone: 01-08-2022 10:54-0400 Heart rate 97 /min Referring Provider Unknown [facility] Work Phone: 01-08-2022 10:54-0400 Respiratory rate 16 /min Referring Provider Unknown [facility] Work Phone: 01-08-2022 10:54-0400 SaO2% (BldA) [Mass fraction] 97 % Referring Provider Unknown [facility] Work Phone: 01-08-2022 10:54-0400 Systolic blood pressure 140 mm[Hg] Referring Provider Unknown [facility] Work Phone: 01-08-2022 10:54-0400 6 1 Referring Provider Unknown [facility] Work Phone: Comment on above: [employer] 10-15-2021 07:06-0400 Body weight 93.89 kg Carolyn Pineda MD Work Phone: [facility] 10-15-2021 07:06-0400 Diastolic blood pressure 80 mm[Hg] Carolyn Pineda MD Work Phone: [facility] 10-15-2021 07:06-0400 Systolic blood pressure 106 mm[Hg] Carolyn Pineda MD Work Phone: [facility] Encounters Encounter Date Encounter Type Care Provider Facility Start: 03-18-2024 Encounter for gynecological examination (general) (routine) without abnormal findings Torrie Lazo [facility] Start: 03-18-2024 End: 03-18-2024 ambulatory Torrie Lazo [facility] Start: 03-18-2024 End: 03-18-2024 ambulatory Torrie Clifton Facility:[facility] Start: 01-10-2022 AUDIT Referring Prov ider Unknown [facility] Work Phone: Start: 01-08-2022 ambulatory PCP UNKNOWN Facility:[facility] Start: 10-15-2021 End: 10-15-2021 Patient encounter procedure Carolyn Pineda MD Work Phone: Obstetrics/Gynecology Comment on above: Encounter for gyneco logical examination (general) (routine) without abnormal findings (Primary Dx) Start: 10-15-2021 End: 10-15-2021 Patient encounter status Carolyn Pineda MD Work Phone: Obstetrics/Gynecology Start: 09-10-2021 Refill Carolyn hanks MD Work Phone: Obstetrics/Gynecology Plan of Treatment Date Care Activity Detail Author Start: 08-17-2022 PAP TESTING PAP TESTING [facility] Start: 11-07-2021 Influenza vaccination INFLUENZA (#1) [facility] Start: 2016 SHINGRIX VACCINE (1 of 2) SHINGRIX V ACCINE (1 of 2) [facility] Start: 2016 Urine microalbumin profile DTAP,TDAP ,TD (1 - Tdap) [facility] Start: 08-02-2015 HEPATITIS C SCREENING HEPATITIS C SC JET [facility] Start: 08-02-2015 HIV SCREENING HIV SCREENING [facility] Start: 08-02-2011 PEDS TO ADULT TRANSI TION ANNUAL ASSESSMENT PEDS TO ADULT TRANSITION ANNUAL ASSESSMENT [facility] Start: 2009 Adult depression scr eening assessment DEPRESSION SCREENING [facility] Start: 2009 PEDS TO ADULT TRANSI TION INITIAL DISCUSSION PEDS TO ADULT TRANSITION INITIAL DISCUSSION [facility] Start: 2008 HPV VACCINE (1 - 2-d ose series) HPV VACCINE (1 - 2-dose series) [facility] Start: 08-02-2007 MENINGOCOCCAL B: Con fur weigher based on risk (1 of 2 - Risk Bexsero 2-dose series) MENINGOCOCCAL B: Consider based on risk (1 of 2 - Risk Bexsero 2-dose series) [facility] Start: 08-02-2003 PNEUMOCOCCAL (1 - PCV) PNEUMOCOCCAL (1 - PCV) [facility] Start: 2002 COVID-19 VACCINE (#1) COVID-19 VACCI NE (#1) [facility] Start: 02-01-1998 COVID-19 VACCINE (#1) COVID-19 VACCI NE (#1) [facility] [facility] Start: 1997 HEPATITIS B (1 of 3 - 3-dose series) HEPATITIS B (1 of 3 - 3-dose series) [facility] Payers Date Payer Category Payer Self-pay 2022 Unknown [id number] 2021 Private Health Insurance [facility] CHOICE PLUS [id number] 2021-Present [phone] [address] [place] [address] [facility] [id number] 2021 Private Health Insurance [facility] CHOICE PLUS [id number] 2021-Present [phone] [address] [place] [address] O [id number] 1997 Unknown [id number] Unknown [facility] Private Health Insurance [id number] Unknown [id number] Unknown [id number] Social History Date Type Detail Facility Assertion Tobacco smoking consumption unknown (finding) [facility] Work Phone: Start: 05-02-2011 End: 10-15-2021 Tobacco smoking status NHIS Never smoked tobacco [facility] Start: 05-02-2011 End: 10-15-2021 Tobacco use and exposure Smokeless tobacco non-user [facility] Start: 10-09-2020 End: 10-15-2021 Alcohol intake Current non-drinker of alcohol (finding) [facility] Start: 09-06-2015 History SDOH Alcohol Comment no history reported [facility] Start: 09-06-2015 End: 10-15-2021 Tobacco Comment denies use of tobacco [facility] Start: 1995 Sex Assigned At Female C [facility] Start: 08-31-2021 End: 10-15-2021 Exposure to SARS-CoV-2 (event) Not sure [facility] Functional Status Date Assessment Result Facility NEGATED: Highlighted row Functional performance Functional status health issues are not documented Disease [facility] Work Phone: Mental Status Date Assessment Result Facility NEGATED: Highlighted row Cognitive function [Interpretation] Cognitive status health issues are not documented Disease [place] [address] Work Phone: Progress note 10-15-2021 Note Date & Type Note Facility 10-15-2021 Note HNO ID: [id number] Author: Carolyn Pineda MD Service: ? Author Type: Physician Type: Progress Notes Filed: 10/15/2021 7:24 AM Note Text: Mis is a 26 year old who presents for an annual gynecologic exam without complaints. Menses: cycles every 28 days and 5-6 days of flow. Contraception: combined hormonal contraceptives HPV vaccine: Yes Last Pap: 08/24/2019 ASCUS HPV: 08/28/2019 negative History of abnormal pap: No Last mammogram: never OB History T0 L0 SAB1 IAB0 Ectopic0 Multiple0 Live Births0 Mail Sorting Supervisor History LMP: 10/01/2021 (Approximate), Having periods Age at Menarche: Age at First : Age at Menopause: Mail Sorting Supervisor History Comments: Sexual Activity: Yes; No partner data on record Contraception: Pill PAST MEDICAL HISTORY Diagnosis Date Arthropathy Enthesitis arthritis Ehler's-Danlos syndrome Dx at Family history of breast cancer in first degree relative Mother age 40 Hypoglycemia Mast cell activation syndrome (HCC) 2018 Dx at POTS (postural orthostatic tachycardia syndrome) Syncope vasovagel syncope PAST SURGICAL HISTORY Procedure Laterality Date PAST SURGICAL HISTORY OF wisdom teeth extraction FAMILY HISTORY Problem Relation Age of Onset Stroke Father x 2 Heart Brother congenital Breast Cancer Mother 40 Breast Cancer Maternal Aunt Breast Cancer Maternal Aunt SOCIAL HISTORY Social History Tobacco Use Smoking status: Never Smokeless tobacco: Never Tobacco comments: denies use of tobacco Vaping Use Vaping Use: Never used Substance Use Topics Alcohol use: No Comment: no history reported Drug use: No Comment: no history reported REVIEW OF SYSTEMS Abdomen: No abdominal pain, nausea, vomiting, diarrhea, or constipation. No bloating, early satiety, indigestion, or increased flatulence. Bladder: No dysuria, gross hematuria, urinary frequency, urinary urgency, or incontinence. Breast: No breast lumps, nipple d/c, overlying skin changes, redness or skin retraction. Allergies and current medication updated:Yes EXAM: BP 106/80 Wt 207 lb (93.9kg) LMP 10/01/2021 GENERAL: pleasant, female in no apparent distress HEENT: Normocephalic, atraumatic, mucus membranes moist, and no lesions NECK: Supple, full range of motion, no adenopathy, and thyroid normal DERMATOLOGY: Normal, without lesions, non-icteric, and non-hirsute BREAST: soft, non-tender, symmetric, no dominant mass, normal nipple-areolar complex, no lymphadenopathy, and no nipple discharge CHEST: Clear to auscultation, Normal inspiratory effort, Regular rate and rhythm, and No murmurs, clicks, rubs or gallops ABDOMEN: soft, non-tender, no masses, and no hepatosplenomegaly PELVIC: external genitalia normal, normal Bartholin's glands, urethra, Ko Vaya's glands, no vulvar lesions, no cervical lesions, good vaginal support, physiologic discharge present, normal appearing perineal body and perianal region BIMANUAL: uterus normal size, shape and consistency, midposition, no adnexal masses, and non-tender RECTOVAGINAL: deferred NEURO: alert and oriented x3,exam grossly non-focal EXTREMITIES: normal ASSESSMENT/PLAN: 1) Health maintenance: Pap/HPV up to date. 2) Contraception: combined hormonal contraceptives. Contraceptive options reviewed and information provided. 3) STD screening: Declined STD check. 4) Follow up one year or sooner as needed Carolyn Pineda MD [facility] History of Present illness Narrative 10-15-2021 Carolyn Pineda MD - 10/15/2021 7:17 AM EDT Note Date & Type Note Facility 10-15-2021 History of Presen t illness Narrative Mis is a 26 year old who presents for an annual gynecologic exam without complaints. Menses: cycles every 28 days and 5-6 days of flow. Contraception: combined hormonal contraceptives HPV vaccine: Yes Last Pap: 08/24/2019 ASCUS HPV: 08/28/2019 negative History of abnormal pap: No Last mammogram: never OB History T0 L0 SAB1 IAB0 Ectopic0 Multiple0 Live Births0 Mail Sorting Supervisor History LMP: 10/01/2021 (Approximate), Having periods Age at Menarche: Age at First : Age at Menopause: Mail Sorting Supervisor History Comments: Sexual Activity: Yes; No partner data on record Contraception: Pill PAST MEDICAL HISTORY Diagnosis Date Arthropathy Enthesitis arthritis Ehler's-Danlos syndrome Dx at Family history of breast cancer in first degree relative Mother age 40 Hypoglycemia Mast cell activation syndrome (HCC) 2018 Dx at POTS (postural orthostatic tachycardia syndrome) Syncope vasovagel syncope PAST SURGICAL HISTORY Procedure Laterality Date PAST SURGICAL HISTORY OF wisdom teeth extraction FAMILY HISTORY Problem Relation Age of Onset Stroke Father x 2 Heart Brother congenital Breast Cancer Mother 40 Breast Cancer Maternal Aunt Breast Cancer Maternal Aunt SOCIAL HISTORY Social History Tobacco Use Smoking status: Never Smokeless tobacco: Never Tobacco comments: denies use of tobacco Vaping Use Vaping Use: Never used Substance Use Topics Alcohol use: No Comment: no history reported Drug use: No Comment: no history reported REVIEW OF SYSTEMS Abdomen: No abdominal pain, nausea, vomiting, diarrhea, or constipation. No bloating, early satiety, indigestion, or increased flatulence. Bladder: No dysuria, gross hematuria, urinary frequency, urinary urgency, or incontinence. Breast: No breast lumps, nipple d/c, overlying skin changes, redness or skin retraction. Allergies and current medication updated:Yes EXAM: BP 106/80 Wt 207 lb (93.9kg) LMP 10/01/2021 GENERAL: pleasant, female in no apparent distress HEENT: Normocephalic, atraumatic, mucus membranes moist, and no lesions NECK: Supple, full range of motion, no adenopathy, and thyroid normal DERMATOLOGY: Normal, without lesions, non-icteric, and non-hirsute BREAST: soft, non-tender, symmetric, no dominant mass, normal nipple-areolar complex, no lymphadenopathy, and no nipple discharge CHEST: Clear to auscultation, Normal inspiratory effort, Regular rate and rhythm, and No murmurs, clicks, rubs or gallops ABDOMEN: soft, non-tender, no masses, and no hepatosplenomegaly PELVIC: external genitalia normal, normal Bartholin's glands, urethra, Ko Vaya's glands, no vulvar lesions, no cervical lesions, good vaginal support, physiologic discharge present, normal appearing perineal body and perianal region BIMANUAL: uterus normal size, shape and consistency, midposition, no adnexal masses, and non-tender RECTOVAGINAL: deferred NEURO: alert and oriented x3,exam grossly non-focal EXTREMITIES: normal ASSESSMENT/PLAN: 1) Health maintenance: Pap/HPV up to date. 2) Contraception: combined hormonal contraceptives. Contraceptive options reviewed and information provided. 3) STD screening: Declined STD check. 4) Follow up one year or sooner as needed Carolyn Pineda MD documented in this encounter [facility] Note 09-10-2021 Telephone Encounter - Paz Rowland Pss - 09/10/2021 3:10 PM EDT Note Date & Type Note Facility 09-10-2021 Miscellaneous Notes Patient is calling today to ask that a new prescription for Desogestrel-Ethinyl Estradiol (JULEBER) 0.15-0.03 mg per tablet be sent to [facility]. Patient has new insurance and a change in pharmacy. Patient is scheduled for her annual exam on 10/15/21. Paz Rowland Pss documented in this encounter [facility] Evaluation note Note Date & Type Note Facility Evaluation note Diagnosis Encounter for gynecological examination (general) (routine) without abnormal findings- Primary documented in this encounter [facility] Instructions Note Date & Type Note Facility Instructions Name Instructions not documented [id number] Work Phone: Summary Purpose Family History No Family History Records FoundNo Family History Records FoundNo Family History Records FoundNo Family History Records FoundNo Family History Records FoundNo Family History Records Found Advance Directives No Advanced Directives Records FoundDocuments on File Type Date Recorded 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 DATE CREATED AUTHOR AUTHOR'S ORGANIZ ATION 01/09/2022 [employer] DATE CREATED AUTHOR AUTHOR'S ORGANIZ ATION 04/07/2022 [facility] DATE CREATED AUTHOR AUTHOR'S ORGANIZ ATION 04/16/2024 [facility] Source Comments (unrecognize d section and content) In the event this informatio n is protected by the Federal Confidentiality of Alcohol and Drug Abuse Patient Records regulations: The Federal rules restrict any use of the information to criminally investigate or prosecute any alcohol or drug abuse patient.[facility] the event this information is protected by the Federal Confidentiality of Alcohol and Drug Abuse Patient Records regulations: The Federal rules restrict any use of the information to criminally investigate or prosecute any alcohol or drug abuse patient.[facility] Care Teams (unrecognized sec tion and content) Fruit Room Hand Relationship Specialty Start Date End Date Eufemia Bob MD [address] [place], [place] [id number] PCP - General Family Practice 12/16/16 Fruit Room Hand Relationship Specialty Start Date End Date Eufemia Bob MD [address] [place], [place] [phone] PCP - General Family Practice 12/16/16 Reason for Visit (unrecogniz ed section and content) Reason Comments [facility] FOR RECORDS PERTAINING TO PATIENTS WHO ARE OR HAVE BEEN ENROLLED IN A CHEMICAL DEPENDENCY/SUBSTANCEABUSE PROGRAM, SOME INFORMATION MAY BE OMITTED. This clinical summary was aggregated from multiple sources. Caution should be exercised in using it in the provision of clinical care. This summary normalizes information from multiple sources, and as a consequence, information in this document may materially change the coding, format and clinical context of patient data. In addition, data may be omitted in some cases. CLINICAL DECISIONS SHOULD BE BASED ON THE PRIMARY CLINICAL RECORDS. [employer] [facility]. provides no warranty or guarantee of the accuracy or completeness of information in this document.
[2024-10-07 12:11] LABS: hCG Titer Quant., Serum < 1 mIU/mL (<9 non-preg)
== END | disposition home or self-care (01) ==
LOC: BWCLAB 08:17
PROVIDERS: Referring Provider Advanced Practice Midwife; Visit Provider Advanced Practice Midwife
DX: Z87.59 Personal history of other complications of pregnancy, childbirth and the puerperium (principal)
CPT/HCPCS: 36415; 84702

== ENCOUNTER → 2024-12-21 | Outpatient (CLI) | payer BC, SELFPAY ==
[2024-12-21 17:15] LABS: hCG Titer Quant., Serum 750 mIU/mL (<9 non-preg)
== END | disposition home or self-care (01) ==
PROVIDERS: Obstetrics & Gynecology; Visit Provider Obstetrics & Gynecology
DX: Z32.01 Encounter for pregnancy test, result positive (principal)
CPT/HCPCS: 36415; 84702

== ENCOUNTER → 2024-12-23 | Outpatient (CLI) | payer BC, SELFPAY ==
--- OUTSIDE RECORDS SUMMARY | 2024-12-23 08:26 | XMS RPT_ITS | CCD ---
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 Name Role Phone Rabia Campos Lindy Unavailable Unavailable Eufemia Bob Unavailable Unavailable Laurel Tarango MD Unavailable Unavailable Paulino SIM, Eufemia Chery Primary Care Provider [phone] Eufemia Bob MD Primary Care Provider Unknown, Referring Provider Unavailable Unav ailable Unavailable Unavailable UNKNOWN, PCP Primary Care Unavailable Julian Foote Referring Unavailable Julian Foote Attending Unavailable Torrie Lazo CNM Attending Provider [phone] Torrie Lazo CNM Referring Provider Torrie Lazo Attending Unavailable Torrie Lazo Referring Unavailable Torrie Lazo Attending Unavailable Torrie Lazo Referring Unavailable Torrie Lazo Attending Unavailable Allergies Allergy Classification Reported Allergen(s) Allergy Type Date of Onset Reaction(s) Facility (1 source) tobacco; Translations: [tobacco] Propensity to adverse reactions (disorder) 5 [facility] Repository Medications Current Medications Medication Drug Class(es) Dates Sig (Normalized) Sig (Original) Desogestrel-Ethinyl Estradiol (8 sources) Progestin, Estrogen Start: 03-18-2024 Desogestrel-Ethiny l Estradiol 0.15-0.03 mg tablet Active 1 {tbl} PO DAILY 84 March 18, 2024 5:14pm Start: 06-09-2023 End: 03-18-2024 Desogestrel-Ethinyl Estradio l 0.15-0.03 mg tablet Discontinued 1 {tbl} PO DAILY 84 June 09, 2023 8:17am March 18, 2024 5:14pm Start: 10-15-2021 take 1 tablet by edmund th once [...] stop 3 Package 4 10/09/2020 09/10/2021 Discontinued Start: 06-28-2018 End: 06-09-2023 Desogestrel-Ethinyl Estradio l 0.15-0.03 mg tablet Discontinued 1 {tbl} PO DAILY 84 June 28, 2018 11:20am June 09, 2023 8:17am Start: 04-21-2018 End: 06-28-2018 Desogestrel-Ethinyl Estradio l 0.15-0.03 mg tablet Discontinued 1 {tbl} PO DAILY 28 April 21, 2018 1:00am June 28, 2018 11:21am Comment on above: TAKE 1 TABLET BY EDMUND TH ONCE DAILY until directed to stop Completed/Discontinued Medications Medication Drug Class(es) Dates Sig (Normalized) Sig (Original) amitriptyline hydrochloride 25 mg oral tablet (2 sources) Tricyclic Antidepressant Start: 08-03-2015 amitriptyline (ELAVIL) 25 mg tablet Take by mouth once daily. 0 08/03/2015 Active Comment on above: Take by mouth once d aily. atenolol 25 mg oral tablet (2 sources) beta-Adrenergic Paul Start: 08-19-2015 atenolol (TENORMIN) 25 mg tablet Take by mouth once daily. 0 08/19/2015 Active Comment on above: Take by mouth once d aily. azithromycin 250 mg oral tablet (1 source) Macrolide Antimicrobial Start: 08-06-2017 End: 12-26-2022 take 2-5 tablets by mouth once daily Azithromycin 250 mg tablet Discontinued 0 PO .COMPLEX 6 0 August 06, 2017 12:00am December 26, 2022 9:24am take 500 mg today (day 1), then 250 mg for 4 days (days 2-5) PO benzonatate 200 mg oral capsule (2 sources) Non-narcotic Antitussive Start: 01-08-2022 take 1 capsule by mouth three times daily as needed Benzonatate 200 MG Oral Capsule TAKE 1 CAPSULE 3 TIMES DAILY NEEDED. Quantity: 30 Refills: 0 Ordered: 08-Jan-2022 Julian Foote MD Start : 08-Jan-2022 Active Start: 08-06-2017 End: 12-26-2022 take 1-2 capsules by mouth three times daily as needed for cough Benzonatate (Tessalon Perles) 100 mg capsule Discontinued 100 mg PO THREE TIMES A DAY as needed for cough 30 0 August 06, 2017 12:00am December 26, 2022 9:24am 1-2 capsule up to three times per day 24 hr diclofenac sodium 100 mg extended release oral tablet (2 sources) Nonsteroidal Anti-inflammatory Drug Start: 09-01-2015 diclofenac XR (VOLTAREN-XR) 100 mg Tb24 Take by mouth once daily. 0 09/01/2015 Active Comment on above: Take by mouth once d aily. fludrocortisone acetate 0.1 mg oral tablet (2 sources) Start: 09-01-2015 take 1 tablet by mouth twice daily [...] (2 sources) Antiarrhythmic, Amide Local Anesthetic Start: 09-01-2015 apply 1 dose transdermal route every twelve hours lidocaine (LIDODERM) 5 % Apply 1 Patch as directed every 12 hours. 0 09/01/2015 Active Comment on above: Apply 1 Patch as dir ected every 12 hours. magnesium oxide 400 mg oral tablet (2 sources) Start: 09-01-2015 magnesium oxide (MAG-OX) 400 mg tablet Take by mouth once daily. 0 09/01/2015 Active Comment on above: Take by mouth once d aily. predniSONE 20 mg oral tablet (1 source) Start: 08-06-2017 End: 12-26-2022 take 1 tablet by mouth twice daily Prednisone 20 mg tablet Discontinued 20 mg PO TWICE A DAY 12 0 August 06, 2017 12:00am December 26, 2022 9:24am raNITIdine (2 sources) Histamine-2 Receptor Antagonist RANITIDINE HCL (ZANTAC ORAL) Take by mouth once daily. 0 Active Comment on above: Take by mouth once d aily. 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 to make appt when menses starts. 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 Chronic Other non-traumatic joint disorders (4 sources) Hypermobility of joint; Translations: [Other joint derangement, not elsewhere classified, site unspecified] Episodic Other upper respiratory infections (2 sources) Sore throat symptom; Translations: [Acute pharyngitis] Episodic Residual codes; unclassified (2 sources) Flushing; Translations: [Flushing] Episodic Residual codes; unclassified (1 source) H/O: miscarriage; Translations: [Personal history of other complications of , childbirth and the puerperium] 10-03-2024 Episodic Comment on above: 2016 Residual codes; unclassified (1 source) Family history of breast cancer; Translations: [Family history of malignant neoplasm of breast] 12-26-2022 Episodic Comment on above: discussed empower anushka levi-mom/aunt/grandmother with breast cancer Residual codes; unclassified (1 source) Personal history of other complications of , childbirth and the puerperium; Translations: [Personal history of other complications of , childbirth and the puerperium] Onset: 10-28-2024 Episodic Past or Other Problems Problem Classification [...] diseases of respiratory system] Resolved: 01-08-2022 Episodic Other screening for suspected conditions (not mental disorders or infectious disease) (1 source) Encounter for screening for malignant neoplasm of cervix; Translations: [Encounter for screening for malignant neoplasm of cervix] Onset: 04-14-2024 Episodic Residual codes; unclassified (2 sources) Family history of malignant neoplasm of breast in first degree relative; Translations: [Family history of malignant neoplasm of breast] Onset: 12-28-2019 12-28-2019 Episodic NEGATED: Highlighted row has not occurred!Residual codes; unclassified (1 source) Disease Episodic Results Test Name Value Interpretation Reference Range Facility Serum human chorionic gonado tropin detection for pregnancyOrdered By: Torrie Lazo on 10-07-2024 HCG ( test) Ql < 1 mIU/mL <9 [facility] Comment on above: Gestational Age0.2-1 Week: 5-50 mIU/mL1-2 Weeks: 50-500 mIU/mL2-3 Weeks: 100-5000 mIU/mL3-4 Weeks: 500-10,000 mIU/mL4-5 Weeks:1000-50,000 mIU/mL5-6 Weeks: 10,000-100,000 mIU/mL6-8 Weeks: 15,000-200,000 mIU/mL2-3 Months:10,000-100,000 mIU/mL hCG Titer Quant., Serumon HCG QUANT. < 1 Normal <9 non-preg [facility] Comment on above: Result Comment: Gest ational Age 0.2-1 Week: 5-50 mIU/mL 1-2 Weeks: 50-500 mIU/mL 2-3 Weeks: 100-5000 mIU/mL 3-4 Weeks: 500-10,000 mIU/mL 4-5 Weeks:1000-50,000 mIU/mL 5-6 Weeks: 10,000-100,000 mIU/mL 6-8 Weeks: 15,000-200,000 mIU/mL 2-3 Months:10,000-100,000 mIU/mL Performed By: #### L 700.8000 #### [facility] [address] [place], [place], [address] PAP I-G w/rfx hrHPV-Aptimaon 03-22-2024 ADEQ Comment Normal . [facility] Comment on above: Order Comment: Speci men Comment: [id number] Specimen Comment: Source.............Cervix;Endocervix Specimen Comment: No. of containers..01 ThinPrep Vial Result Comment: Sati sfactory for evaluation. Endocervical and/or squamous metaplastic cells (endocervical component) are present. Performed By: #### L 7400.0353 #### [facility] [address] [place], [place], [address] COMM . Normal . [facility] Comment on above: Order Comment: Speci men Comment: [id number] Specimen Comment: Source.............Cervix;Endocervix Specimen Comment: No. of containers..01 ThinPrep Vial Performed By: #### L 7400.0353 #### [facility] [address] [place], [place], [address] COMMENT Comment Normal . [facility] Comment on above: Order Comment: Speci men Comment: [id number] Specimen Comment: Source.............Cervix;Endocervix Specimen Comment: No. of containers..01 ThinPrep Vial Result Comment: This liquid based ThinPrep(R) pap test was screened with the use of an image guided system. Performed By: #### L 7400.0353 #### [facility] [address] [place], [place], [id number] DIAG Comment Normal . [facility] Comment on above: Order Comment: Speci men Comment: [id number] Specimen Comment: Source.............Cervix;Endocervix Specimen Comment: No. of containers..01 ThinPrep Vial Result Comment: NEGA TIVE FOR INTRAEPITHELIAL LESION OR MALIGNANCY. Performed By: #### L 7400.0353 #### [facility] [address] [place], [place], [address] HPV RFLX Comment Normal . [facility] Comment on above: Order Comment: Speci men Comment: [id number] Specimen Comment: Source.............Cervix;Endocervix Specimen Comment: No. of containers..01 ThinPrep Vial Result Comment: The HPV DNA reflex criteria were not met with this specimen result therefore, no HPV testing was performed. Performed at: [address] [id number] Scrap Burner: Christie Frias MD, Phone: [phone] Performed By: #### L 7400.0353 #### [facility] [address] [place], [place], [address] PAPSMR Comment Normal . [facility] Comment on above: Order Comment: Speci men Comment: [id number] Specimen Comment: Source.............Cervix;Endocervix Specimen Comment: No. of [...] occur. Performed By: #### L 7400.0353 #### [facility] [address] [place], [address] PERFORM Comment Normal . [facility] Comment on above: Order Comment: Speci men Comment: [id number] Specimen Comment: Source.............Cervix;Endocervix Specimen Comment: No. of containers..01 ThinPrep Vial Result Comment: Vadim Le, Argon Tester (ASCP) Performed By: #### L 7400.0353 #### [facility] [address] 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 Required: No Is patient in pain?: No Allergies tobacco Allergy (Severe, Uncoded 03/18/24 15:59) Anaphylaxis Medications ???Medication ???Instructions ???Recorded ???Confirmed ???Type desogestrel 0.15 mg-ethinyl 1 tab PO DAILY #84 tabs 03/18/24 03/18/24 Rx estradiol 0.03 mg tablet Is last menstrual period known: Yes Last Menstrual Period: 03/04/24 Post menopausal: No Patient : No Control Method: ocp PFSH Medical History Nutcracker phenomenon of renal vein [...] spouse current occupational status: employed 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 Normal [facility] Covid 19 Resultson 2 SARS-CoV-2 [...] You may also be contacted by the [facility] to see if any of your close [...] or Naproxen (Aleve) can also be used. Vmeu-ebi-crnkotv cough and cold medicines can be used according to the instructions on the package. Some udxc-ldg-mfchvbw medicines also contain acetaminophen. Make sure you [...] water are not available, use alcohol-based hand automotive product engineer. Avoid touching your eyes, nose, and mouth [...] 24 anthony (more content not included)... Normal [facility] INFLUENZA A/B, COVID 2019 PC R,SYMPTOMATICon 01-09-2022 INFLUENZA A, PCR Not detected Normal Not Detected [facility] Comment on above: Result Comment: Resp iratory virus testing is performed routinely by PCR for Influenza A/B and RSV. If Influenza and RSV PCR are negative, testing for parainfluenza 1,2,3 viruses and adenovirus is routinely performed for oncology inpatients and intensive care unit patients at [facility] and is available on request on other patients by calling Laboratory Client Services at [phone]. Not Detected results do not preclude Influenza A/B or RSV infections since the adequacy of sample collection or low viral burden may impact the clinical sensitivity of this test method. Performed By: #### C OINP #### [facility] [address] [place] [address] INFLUENZA B, PCR Not detected Normal Not Detected [facility] Comment on above: Result Comment: Resp iratory virus testing is performed routinely by PCR for Influenza A/B and RSV. If Influenza and RSV PCR are negative, testing for parainfluenza 1,2,3 viruses and adenovirus is routinely performed for oncology inpatients and intensive care unit patients at [facility] and is available on request on other patients by calling Laboratory Client Services at [phone] Not Detected results do not preclude Influenza [...] by the Microbiology Laboratory, Department of Pathology, [facility], [place], [place]. It has not been cleared or approved by the US Food and Drug Administration; however, FDA clearance or approval is not currently required for clinical use. This test should not be regarded as investigational or for research purposes. Performed By: #### C OINP #### [facility] [address] [place] [address] SARS-CoV-2 (COVID-19) RNA ANTONIO+probe Ql (Unsp spec) Not detected Normal Not Detected [facility] Comment on above: Result Comment: . This [...] patient management decisions. Fact sheet for providers: https://www.fda.gov/media/109386/download Fact sheet for patients: https://www.fda.gov/media/453062/download This test has received FDA Emergency Use Authorization (EUA) and has been verified by [facility] ([facility]). This test is only authorized for the duration of time that circumstances exist to justify the authorization of the emergency use of in vitro diagnostic tests for the detection of SARS-CoV-2 virus and/or diagnosis of COVID-19 infection under section 564(b)(1) of the Act, 21 U.S.C. 360bbb-3(b)(1), unless the authorization is terminated or revoked sooner. [facility] is certified under CLIA-88 as qualified to perform high complexity testing. Testing is performed in the [facility] laboratories located at [address] [place] [address]. Performed By: #### C OINP #### [address] [place] [address] INFLUENZA A/B, COVID 2019 PC R,SYMPTOMATICon 01-08-2022 Lab Specimen Source Nasal, Nasopharyngeal Normal [facility] Comment on above: Performed By: #### C OINP #### [address] [place] [address] INFLUENZA A/B, COVID 2019 PCR,SYMPTOMATIC Not detected See [facility] Work Phone: Comment on above: Reference Range: [...] make patient management decisions.Fact sheet for providers: https://www.fda.gov/media/023995/downloadFact sheet for patients: https://www.fda.gov/media/461105/downloadThis test has received FDA Emergency Use Authorization (EUA) and has been verified by [facility] ([facility]). This test is only authorized for the duration of time that circumstances exist to justify the authorization of the emergency use of in vitro diagnostic tests for the detection of SARS-CoV-2 virus and/or diagnosis of COVID-19 infection under section 564(b)(1) of the Act, 21 U.S.C. 360bbb-3(b)(1), unless the authorization is terminated or revoked sooner. [facility] is certified under CLIA-88 as qualified to perform high complexity testing. Testing is performed in the [facility] laboratories located at [address] [place] [address]. Reference Range: Not Detected Respiratory virus testing is performed routinely by PCR for Influenza A/B and RSV. If Influenza and RSV PCR are negative, testing for parainfluenza 1,2,3 viruses and adenovirus is routinely performed for oncology inpatients and intensive care unit patients at [facility] and is available on request on other patients by calling Laboratory Client Services at [phone] Not Detected results do not preclude Influenza [...] by the Microbiology Laboratory, Department of Pathology, [place], [place]. It has not been cleared or [...] inpatients and intensive care unit patients at [facility] and is available on request on other patients by calling Laboratory Client Services at [phone]. Not Detected results do not preclude Influenza A/B or RSV infections since the adequacy of sample collection or low viral burden may impact the clinical sensitivity of this test method. IO Rapid Strepon 01-08-2022 S. pyogenes Ag Ql (Throat) Negative [facility] Work Phone: Office Visit (Urgent Care)on 01-08-2022 Follow-up [...] or pneumonia. No skin rashes are noted. Ypkl-rbt-avbnauu medications are offering minimal relief from symptoms. 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 Over the last 2 weeks have you felt down, depressed or hopeless? (If yes, answer PHQ-9 below)No PHQ-2 #2. Over the last 2 weeks have you felt little interest or pleasure in doing things? (If yes, answer PHQ-9 below)No Falls Screening (Age 18+)a) No falls within the last year O2 Gwanzxrgit02 Pain Scale6 Physical Exam Gen.-alert cooperative and [...] swelling or tenderness appreciated Results/Data IO Rapid [id number] 11:07Julian Ye Test NameResultFlagReference IO Rapid StrepNegative Rapid strep test negative Signatures Electronically signed by : Julian Foote MD; Jan 08 2022 11:35AM EST (Author) Normal [employer] Tobacco Screening.on Adult depression screening assessment No [facility] Work Phone: Fall risk assessment a) No falls within the last year [facility] Work Phone: Tobacco use status CPHS b) No [facility] Work Phone: CNOVon 10-15-2021 CNOV Office Visit (OBGMEM ) -- MIS SANDOVAL ([id number]) 1995 F Date Time Provider Department 10/15/21 [...] L0 SAB1 IAB0 Ectopic0 Multiple0 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 Normal [facility] Movie Mouth BREAST LTD LTon 01-15 Movie Mouth BREAST [facility] * * *Final Report* * * DATE OF EXAM: Jan 16 2020 2:05PM WILLI 0593 - [place] LT / PROCEDURE REASON: N63.0-Lump or mass in breast * * * * Physician Interpretation * * * * #[id number] - Movie Mouth BREAST [facility] LIMITED ULTRASOUND OF LEFT BREAST AND AXILLA: [...] the axilla. Follow-up with ACR/NCCN guidelines. Jama lazcano/luiz:01/16/2020 14:07:41 Manager Shipping(s): Ashlyn Carmona, [facility] Ultrasound BI-RADS: 1 Negative Multiple national specialty organizations have released breast cancer screening guidelines for women at average risk for developing breast cancer - guidelines that are based on both evidence and opinion, yet differ on when to start and how often to screen for breast cancer. With representation from Breast Imaging, Internal Medicine, Women's Health, Family Medicine, and Medical/Surgical Oncology, the [facility] has carefully reviewed the data and reached [...] their providers when to stop screening mammograms. Breakdown Person: Luiz Transcribe Date/Time: Jan 16 2020 1:52P Dictated by : JAMA MANDUJANO MD This examination was interpreted and the report reviewed and electronically signed by: JAMA MANDUJANO MD on Jan 16 2020 2:07PM EST [id number] Normal [facility] Basic Panelon 12-16-2016 Anion gap 6 mmol/L Low 8-20 [facility] Comment on above: Performed By: #### L P8 ####[place] [address] BUN (urea nitrogen) 16 mg/dL Normal 7-25 [facility] Comment on above: Performed By: #### L P8 ####[facility] [place], [place] [address] BUN/Creatinine Ratio 21 mg/mg High 10-20 [facility] Comment on above: Performed By: #### L P8 ####[address] [address] Calcium 9.0 mg/dL Normal 8.5-10.1 [facility] Comment on above: Performed By: #### L P8 ####[address] [address] Chloride 104 mmol/L Normal 98-107 [facility] Comment on above: Performed By: #### L P8 ####[address] [address] CO2 27 mmol/L Normal 21-32 [facility] Comment on above: Performed By: #### L P8 ####[place] [address] Creatinine 0.76 mg/dL Normal 0.51-0.95 [facility] Comment on above: Performed By: #### L P8 ####[address] [address] Glucose mass conc 76 mg/dL Normal 70-99 [facility] Comment on above: Performed By: #### L P8 ####[address] [address] Potassium molar conc 3.6 mmol/L Normal 3.5-5.1 [facility] Comment on above: Performed By: #### L P8 ####[address] [address] Sodium 133 mmol/L Low 136-145 [facility] Comment on above: Performed By: #### L P8 ####[address] [address] HCG, Qual. Serumon 7 HCG, Qual. Serum Negative Normal Negative [facility] Comment on above: Performed By: #### L SHCG ####[address] [address] Hemogram/Diffon 12-16-2016 Basophils Auto #/vol (Bld) 0.03 thou/cmm Normal 0.00-0.08 [facility] Comment on above: Performed By: #### L CBCD ####[address] [address] Basophils/100 WBC Auto (Bld) 0.3 % Normal [facility] Comment on above: Performed By: #### L CBCD ####[address] [address] Eosinophils 0.21 thou/cmm Normal 0.00-0.41 [facility] Comment on above: Performed By: #### L CBCD ####[place] [address] Eosinophils/100 leukocytes 2.4 % Normal [facility] Comment on above: Performed By: #### L CBCD ####[place] [address] Erythrocyte distribution width Auto Ratio (RBC) 11.7 % Normal 11.5-15.9 [facility] Comment on above: Performed By: #### L CBCD ####[address] [address] Erythrocytes (RBC) 4.30 mil/cmm Normal 4.20-5.40 [facility] Comment on above: Performed By: #### L CBCD ####[place] [address] Hematocrit (HCT) 37.6 % Normal 37.0-47.0 [facility] Comment on above: Performed By: #### L CBCD ####[address] [address] Hemoglobin mass conc (Bld) 13.1 g/dL Normal 12.0-16.0 [facility] Comment on above: Performed By: #### L CBCD ####[place] [address] Lymphocytes 2.66 thou/cmm Normal 1.50-3.65 [facility] Comment on above: Performed By: #### L CBCD ####[facility] [place], [place] [address] Lymphocytes/100 leukocytes 29.9 % Normal [facility] Comment on above: Performed By: #### L CBCD ####[address] [address] MCH 30.5 pg Normal 27.0-31.0 [facility] Comment on above: Performed By: #### L CBCD ####[address] [address] MCHC mass conc (RBC) 34.8 % Normal 32.0-36.0 [facility] Comment on above: Performed By: #### L CBCD ####[address] [address] MCV 87.4 fL Normal 81.0-99.0 [facility] Comment on above: Performed By: #### L CBCD ####[address] [address] Monocytes 0.86 thou/cmm Normal 0.20-1.00 [facility] Comment on above: Performed By: #### L CBCD ####[address] [address] Monocytes/100 leukocytes 9.7 % Normal [facility] Comment on above: Performed By: #### L CBCD ####[address] [address] Platelet mean volume (PMV) 11.5 fL High 7.1-10.5 [facility] Comment on above: Performed By: #### L CBCD ####[address] [address] Platelets 245 thou/cmm Normal 150-400 [facility] Comment on above: Performed By: #### L CBCD ####[address] [address] Seg Neutrophil 57.7 % Normal [facility] Comment on above: Performed By: #### L CBCD ####[place] [address] Seg. Neut.# 5.14 thou/cmm Normal 3.00-5.67 [facility] Comment on above: Performed By: #### L CBCD ####[facility] [place], [place] [address] WBC (Leukocytes) 8.9 thou/cmm Normal 4.8-10.8 [facility] Comment on above: Performed By: #### L CBCD ####[facility] [place], [place] [address] MDRD eGFRon 12-16-2016 eGFR (non-black) mL/min/{1.73_m2} Normal >60mL/m in/1. 73m2 [facility] Comment on above: Result Comment: If t he patient is , multiply the result by 1.210. Performed By: #### L GFR ####[address] [address] Vital Signs Date Time Vital Sign Value Performing Clinician Facility 01-08-2022 10:54-0400 Body temperature 97.2 [degF] Referring Provider Unknown [facility] Work Phone: 01-08-2022 10:54-0400 Body weight 81.65 kg Referring Provider Unknown [facility] Work Phone: 01-08-2022 10:54-0400 Diastolic blood pressure 90 mm[Hg] Referring Provider Unknown [facility] Work Phone: 01-08-2022 10:54-0400 Heart rate 97 /min Referring Provider Unknown [facility] Work Phone: 01-08-2022 10:54-0400 Respiratory rate 16 /min Referring Provider Unknown [facility] Work Phone: 01-08-2022 10:54-0400 SaO2% (BldA) [Mass fraction] 97 % Referring Provider Unknown [facility] Work Phone: 01-08-2022 10:54-0400 Systolic blood pressure 140 mm[Hg] Referring Provider Unknown [facility] Work Phone: 01-08-2022 10:54-0400 6 1 Referring Provider Unknown [facility] Work Phone: Comment on above: [facility] 10-15-2021 07:06-0400 Body weight 93.89 kg Carolyn Pineda MD Work Phone: [facility] 10-15-2021 07:06-0400 Diastolic blood pressure 80 mm[Hg] Carolyn Pineda MD Work Phone: [facility] 10-15-2021 07:06-0400 Systolic blood pressure 106 mm[Hg] Carolyn Pineda MD Work Phone: [facility] Encounters Encounter Date Encounter Type Care Provider Facility Start: 10-07-2024 End: 10-07-2024 ambulatory Torrie Lazo CN Work Phone: [facility] Start: 10-07-2024 End: 10-07-2024 Patient encounter procedure Torrie Lazo CN -[facility] Start: 10-07-2024 End: 10-07-2024 ambulatory Torrie Lazo Facility:[facility] Start: 03-18-2024 Encounter for gynecological examination (general) (routine) without abnormal findings Torrie Lazo [facility] Start: 03-18-2024 End: 03-18-2024 ambulatory Torrie Lazo Facility:[facility] Start: 03-18-2024 End: 03-18-2024 ambulatory Torrie Lazo Facility:[facility] Start: 01-10-2022 AUDIT Referring Prov ider Unknown [facility] Work Phone: Start: 01-08-2022 ambulatory PCP UNKNOWN Facility:[id number] 458 Start: 10-15-2021 End: 10-15-2021 Patient encounter procedure Carolyn Pineda MD Work Phone: Obstetrics/Gynecology Comment on above: Encounter for gyneco logical examination (general) (routine) without abnormal findings (Primary Dx) Start: 10-15-2021 End: 10-15-2021 Patient encounter status Carolyn Pineda MD Work Phone: Obstetrics/Gynecology Start: 09-10-2021 Octavio hanks MD Work Phone: Obstetrics/Gynecology Plan of Treatment Date Care Activity Detail Author Start: 08-17-2022 PAP TESTING PAP TESTING [facility] Start: 11-07-2021 Influenza vaccination INFLUENZA (#1) [facility] Start: 2016 SHINGRIX VACCINE (1 of 2) SHINGRIX V ACCINE (1 of 2) [facility] Start: 2016 Urine microalbumin profile DTAP,TDAP ,TD (1 - Tdap) [facility] Start: 08-02-2015 HEPATITIS C SCREENING HEPATITIS C SC REENING [facility] Start: 08-02-2015 HIV SCREENING HIV SCREENING [facility] Start: 08-02-2011 PEDS TO ADULT TRANSI TION ANNUAL ASSESSMENT PEDS TO ADULT TRANSITION ANNUAL ASSESSMENT [facility] Start: 2009 Adult depression scr eening assessment DEPRESSION SCREENING [facility] Start: 2009 PEDS TO ADULT TRANSI TION INITIAL DISCUSSION PEDS TO ADULT TRANSITION INITIAL DISCUSSION [facility] Start: 2008 HPV VACCINE (1 - 2-d ose series) HPV VACCINE (1 - 2-dose series) [facility] Start: 08-02-2007 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 (1 of 2 - Risk Bexsero 2-dose series) MENINGOCOCCAL B: Consider based on risk (1 of 2 - Risk Bexsero 2-dose series) [facility] Start: 08-02-2003 PNEUMOCOCCAL (1 - PCV) PNEUMOCOCCAL (1 - PCV) [facility] Start: 2002 COVID-19 VACCINE (#1) COVID-19 VACCI NE (#1) [facility] Start: 02-01-1998 COVID-19 VACCINE (#1) COVID-19 VACCI NE (#1) [facility] Start: 1997 HEPATITIS B (1 of 3 - 3-dose series) HEPATITIS B (1 of 3 - 3-dose series) [facility] Cl[facility] c Payers Date Payer Category Payer Self-pay 2022 Unknown [id number] 2021 Private Health Insurance [facility] CHO[employer] PL[employer] [id number] 2021-Present [phone] [address] [place] [address] HMO [id number] 2021 Private Health Insurance [facility] [employer] PLUS [id number] 2021-Present [phone] [address] [place] [address] HMO [id number] 1997 Unknown [id number] Unknown [facility] Private Health Insurance [id number] Unknown [id number] Unknown [id number] Unknown [id number] Social History Date Type Detail Facility Assertion Tobacco smoking consumption unknown (finding) [facility] Work Phone: Start: 05-02-2011 End: 12-26-2022 Tobacco smoking status NHIS Never smoked tobacco [facility] Start: 05-02-2011 End: 10-15-2021 Tobacco use and exposure Smokeless tobacco non-user [facility] Start: 10-09-2020 End: 10-15-2021 Alcohol intake Current non-drinker of alcohol (finding) [facility] Start: 09-06-2015 History SDOH Alcohol Comment no history reported [facility] Start: 09-06-2015 End: 10-15-2021 Tobacco Comment denies use of tobacco [facility] Start: 1995 Sex Assigned At Female C [facility] Start: 08-31-2021 End: 10-15-2021 Exposure to SARS-CoV-2 (event) Not sure [facility] Functional Status Date Assessment Result Facility NEGATED: Highlighted row Functional performance Functional status health issues are not documented Disease [facility] Work Phone: Mental Status Date Assessment Result Facility NEGATED: Highlighted row Cognitive function [Interpretation] Cognitive status health issues are not documented Disease [id number] Work Phone: Progress note 10-15-2021 Note Date & Type Note Facility 10-15-2021 Note HNO ID: [id number] Author: Carolyn Pineda MD Service: ? Author [...] L0 SAB1 IAB0 Ectopic0 Multiple0 Live Births0 [employer] History LMP: 10/01/2021 (Approximate), Having periods Age at Menarche: Age at First : Age at Menopause: [employer] History Comments: Sexual Activity: Yes; No partner [...] external genitalia normal, normal Bartholin's glands, urethra, Loring's glands, no vulvar lesions, no cervical lesions, [...] one year or sooner as needed Carolyn Pindea MD [facility] History of Present illness Narrative 10-15-2021 [...] L0 SAB1 IAB0 Ectopic0 Multiple0 Live Births0 [employer] History LMP: 10/01/2021 (Approximate), Having periods Age at Menarche: Age at First : Age at Menopause: [employer] History Comments: Sexual Activity: Yes; No partner [...] external genitalia normal, normal Bartholin's glands, urethra, Loring's glands, no vulvar lesions, no cervical lesions, [...] Carolyn Pineda MD documented in this encounter [facility] Note 09-10-2021 Telephone Encounter - Paz Ferris - 09/10/2021 3:10 PM EDT Note Date & Type Note Facility 09-10-2021 Miscellaneous Notes Patient is calling today to ask that a new prescription for Desogestrel-Ethinyl Estradiol (JULEBER) 0.15-0.03 mg per tablet be sent to [facility]. Patient has new insurance and a change in pharmacy. Patient is scheduled for her annual exam on 10/15/21. Paz Ferris documented in this encounter [facility] Evaluation note Note Date & Type Note Facility Evaluation note Diagnosis Encounter for gynecological examination (general) (routine) without abnormal findings- Primary documented in this encounter [facility] Evaluation note Note Date & Type Note Facility Evaluation note No assessment information availa ble [facility] Work Phone: Instructions Note Date & Type Note Facility Instructions Name Instructions not documented [id number] Work Phone: Reason for referral (narrative) Note Date & Type Note Facility Reason for referral (narrative) No reason for referral information available [facility] Work Phone: Summary Purpose Family History No Family History Records Found Relationship Condition Age at Onset Recorded Date/T jimmy brother Asthma Unknown mother Hemorrhagic disorder Unknown Disorder of thyroid Unknown Malignant neoplasm of breast 40 grandmother Malignant neoplasm of breast Unknown Diabetes mellitus Unknown Myocardial infarction Unknown father Cerebrovascular accident (CVA) Unknown grandmother Malignant neoplasm Unknown aunt Malignant neoplasm Unknown Advance Directives No Advanced Directives Records FoundDocuments on File Type Date Recorded Patient Supervisor Clam Bed Expl anation Advance Directive(s) 12/16/2016 4:59 PM Additional Source Comments INFORMATION SOURCE (unrecogn ized section and content) DATE CREATED AUTHOR 09/01/2017 [facility] DATE CREATED AUTHOR AUTHOR'S ORGANIZ ATION 01/17/2020 [facility] DATE CREATED AUTHOR AUTHOR'S ORGANIZ ATION 10/15/2021 [facility] DATE CREATED AUTHOR AUTHOR'S ORGANIZ ATION 01/09/2022 [facility] DATE CREATED AUTHOR AUTHOR'S ORGANIZ ATION 04/07/2022 [facility] DATE CREATED AUTHOR AUTHOR'S ORGANIZ ATION 10/30/2024 [facility] Source Comments (unrecognize d section and content) In the event this informatio n is protected by the Federal Confidentiality of Alcohol and Drug Abuse Patient Records regulations: The Federal rules restrict any use of the information to criminally investigate or prosecute any alcohol or drug abuse patient.[facility] the event this information is protected by the Federal Confidentiality of Alcohol and Drug Abuse Patient Records regulations: The Federal rules restrict any use of the information to criminally investigate or prosecute any alcohol or drug abuse patient.[facility] Care Teams (unrecognized sec tion and content) 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 Start Date End Date Eufemia Bob MD [address] [place] [address] PCP - General Family Practice 12/16/16 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 Start Date End Date Eufemia Bob MD [address] [place] [address] PCP - General Family Practice 12/16/16 Team Status: Inactive Member Role/Relationship Status Dates Torrie Lazo CNM Attending Provider Active S tart: October 07, 2024 End: October 07, 2024 Torrie Lazo CNM Referring Provider Active S tart: October 07, 2024 End: October 07, 2024 Reason for Visit (unrecogniz ed section and content) Reason Comments [facility] Goals (unrecognized section and content) Goals may be documented in a n alternate section FOR RECORDS PERTAINING TO PATIENTS WHO ARE [...] BE BASED ON THE PRIMARY CLINICAL RECORDS. [facility]. provides no warranty or guarantee of the accuracy or completeness of information in this document.
[2024-12-23 10:01] LABS: hCG Titer Quant., Serum 1592 mIU/mL (<9 non-preg)
== END | disposition home or self-care (01) ==
LOC: BWCLAB 08:08
PROVIDERS: Obstetrics & Gynecology; Visit Provider Obstetrics & Gynecology
DX: Z32.01 Encounter for pregnancy test, result positive (principal)
CPT/HCPCS: 36415; 84702

== ENCOUNTER → 2025-01-24 | Outpatient (CLI) | payer BC, SELFPAY ==
[2025-01-27 05:07] LABS: Chlamydia By Nucleic Acid AMP Negative (Negative); Gonococcus By Nucleic Acid AMP Negative (Negative)
== END | disposition home or self-care (01) ==
LOC: LABSPEC 15:09
PROVIDERS: Visit Provider Advanced Practice Midwife
DX: O09.90 Supervision of high risk pregnancy, unspecified, unspecified trimester (principal); Z3A.00 Weeks of gestation of pregnancy not specified
CPT/HCPCS: 87086; 87491; 87591

== ENCOUNTER → 2025-02-07 | Outpatient (CLI) | payer BC, SELFPAY ==
[2025-02-07 12:06] LABS: Hematocrit 36.9 % (37-47); Hemoglobin 12.3 g/dL (12.0-15.0); Immature Granulocytes Count 0.030 X10^3/uL (0.0-0.0); Mean Corp Hgb Conc 33.3 g/dL (32-36); Mean Corpuscular Volume 88.3 fL (81-99); Mean Platelet Vol. 11.3 fl (6.2-12.0); NRBC Flagged by Analyzer 0 % (0-5); Platelet Count 280 K/mm3 (150-450); RBC Distribution Width CV 13.1 % (11.6-14.6); RBC Distribution Width SD 41.9 fl (35.1-43.9); Red Blood Count 4.18 M/mm3 (4.2-5.4); White Blood Count 8.0 K/mm3 (4.4-11.0)
[2025-02-07 13:05] LABS: HIV Nonreactive (Nonreactive); Hepatitis B Surface Antigen Nonreactive (Nonreactive); Hepatitis C Antibody Nonreactive (Nonreactive); Syphilis Antibodies Nonreactive (Nonreactive)
== END | disposition home or self-care (01) ==
PROVIDERS: Advanced Practice Midwife; Visit Provider Student in an Organized Health Care Education/Training Program
DX: O09.90 Supervision of high risk pregnancy, unspecified, unspecified trimester (principal); Z3A.00 Weeks of gestation of pregnancy not specified; Z31.82 Encounter for Rh incompatibility status; O99.210 Obesity complicating pregnancy, unspecified trimester
CPT/HCPCS: 36415; 83036; 85025; 86703; 86762; 86780; 86803; 86850; 86900; 86901; 87340